=== PATIENT | male | born 1955 | race African-American/Black ===

== ENCOUNTER 2016-10-25 19:55 | Observation (INO) | payer BC ==
[~2016-10-25] VITALS: Ht 175.3 cm; Wt 76.7 kg
[2016-10-25 20:41] LABS: BASOPHILS % (AUTO) 0.9 % (0.0-2.0); EOSINOPHILS % (AUTO) 4.9 % (0.0-3.0); MEAN CORPUSCULAR HEMOGLOBIN 31.8 PG (27.0-31.0); MEAN CORPUSCULAR HGB CONC 30.7 G/DL (32.0-36.0); MEAN CORPUSCULAR VOLUME 104 FL (80-99); MEAN PLATELET VOLUME 7.3 FL (6.5-10.1); MONOCYTES % (AUTO) 7.8 % (1.0-10.0); NEUTROPHILS % (AUTO) 49.4 % (45.0-75.0); PLATELET COUNT 246 K/UL (150-450); RED BLOOD COUNT 3.38 M/UL (4.70-6.10); RED CELL DISTRIBUTION WIDTH 13.8 % (11.6-14.8); WHITE BLOOD COUNT 5.1 K/UL (4.8-10.8)
[2016-10-25 20:53] LABS: ALANINE AMINOTRANSFERASE 11 U/L (3-41); ALBUMIN/GLOBULIN RATIO 1.1 (1.0-2.7); ANION GAP 15 (5-15); ASPARTATE AMINO TRANSFERASE 12 U/L (5-40); CALCIUM 8.8 mg/dL (8.6-10.2); CARBON DIOXIDE 23 mEQ/L (20-30); CHLORIDE 102 mEQ/L (98-107); CREATININE 1.5 mg/dL (0.7-1.2); GLOMERULAR FILTRATION RATE 47.3 mL/min (>60); HEMOLYSIS 6; POTASSIUM 4.4 mEQ/L (3.4-4.9); SODIUM 140 mEQ/L (135-145); TOTAL PROTEIN 7.4 g/dL (6.6-8.7); TROPONIN I < 0.30 ng/mL (<=0.30)
[2016-10-25 21:01] VITALS: BP 179/83
[2016-10-25 21:04] LABS: CKMB 2.2 ng/mL (< 6.7)
--- NOTE | 2016-10-25 22:07 | Emergency Room Report ---
History of Present Illness General Chief Complaint: Chest Pain Source: Patient Present Illness HPI 61-year-old male presents to ED complaining of chest pain. Patient states he was walking all day today and after walking he started to develop chest pain. Left-sided, pressure-like, nonradiating. /10. Last for several minutes then subsided. Denies any chest pain at this time. Denies any shortness of breath. Does history of hypertension and has 2 stents. Denies smoke or drug use. No other aggravating relieving factors. Denies any other associated symptoms Allergies: Coded Allergies: ACETAMINOPHEN (Verified Allergy, Unknown, 10/25/16) CELECOXIB (Verified Allergy, Unknown, 10/25/16) CODEINE (Verified Allergy, Unknown, 10/25/16) HYDROCODONE (Verified Allergy, Unknown, 10/25/16) Patient History Past Medical History: DM, HTN, [place] Past Surgical History: none Pertinent Family History: none Social History: Denies: alcohol use, drug use, smoking Immunizations: UTD Reviewed Nursing Documentation: PMH: Agreed, PSxH: Agreed Nursing Documentation-PMH Past Medical History: No History, Except For Hx Cardiac Problems: Yes - stent x2 (2007) Hx Hypertension: Yes Hx Diabetes: Yes Review of Systems All Other Systems: negative except mentioned in HPI Physical Exam Vital Signs Date Time Temp Pulse Resp B/P Pulse Ox O2 Delivery O2 Flow Rate FiO2 10/25/16 20:04 98.1 75 16 178/86 100 Room Air Sp02 EP Interpretation: reviewed, normal General Appearance: no apparent distress, alert, GCS 15, non-toxic Head: normocephalic, atraumatic Eyes: bilateral eye PERRL, bilateral eye normal inspection ENT: hearing grossly normal, normal pharynx, no angioedema, normal voice Neck: full range of motion, supple/symm/no masses Respiratory: chest non-tender, lungs clear, normal breath sounds, speaking full sentences Cardiovascular #1: regular rate, rhythm, no edema Cardiovascular #2: 2+ carotid (R), 2+ carotid (L), 2+ radial (R), 2+ radial (L) , 2+ dorsalis pedis (R), 2+ dorsalis pedis (L) Gastrointestinal: normal bowel sounds, non tender, soft, non-distended, no guarding, no rebound Rectal: deferred Genitourinary: normal inspection, no CVA tenderness Musculoskeletal: back normal, gait/station normal, normal range of motion, non- tender Neurologic: alert, oriented x3, responsive, motor strength/tone normal, sensory intact, speech normal Psychiatric: judgement/insight normal, memory normal, mood/affect normal, no suicidal/homicidal ideation Reflexes: 3+ bicep (R), 3+ bicep (L), 3+ tricep (R), 3+ tricep (L), 3+ knee (R) , 3+ knee (L) Skin: normal color, no rash, warm/dry, well hydrated Lymphatic: no adenopathy Medical Decision Making Diagnostic Impression: Primary Impression: ACS (acute coronary syndrome) ER Course Hospital Course 61-year-old male presents ED complaining of left-sided chest pain Differential diagnoses include: WI/unstable angina, contusion, muscle strain, PTX, rib fracture Clinical course Patient placed on stretcher. on gambling monitor. After initial history and physical I ordered labs, EKG, chest x-ray, ASA labs reviewed- no leukocytosis, hb/hct stable, electrolytes ok, trop negative Chest x-ray- no acute process Case discussed with Dr. Dumont and he agreed to accept the patient to his service for further care and support I. I feel this is a highly complex case requiring extensive working including EKG/Rhythm strip, Xray/CT/US, Blood/urine lab work, repeat exams while in ED, and administration of strong opiates/narcotics for pain control, admission to hospital or close patient follow up. Diagnosis - ACS admitted to telemetry in serious condition Labs Test 10/25/16 20:17 White Blood Count 5.1 K/UL (4.8-10.8) Red Blood Count 3.38 M/UL (4.70-6.10) Hemoglobin 10.8 G/DL (14.2-18.0) Hematocrit 35.1 % (42.0-52.0) Mean Corpuscular Volume 104 FL (80-99) Mean Corpuscular Hemoglobin 31.8 PG (27.0-31.0) Mean Corpuscular Hemoglobin Concent 30.7 G/DL (32.0-36.0) Red Cell Distribution Width 13.8 % (11.6-14.8) Platelet Count 246 K/UL (150-450) Mean Platelet Volume 7.3 FL (6.5-10.1) Neutrophils (%) (Auto) 49.4 % (45.0-75.0) Lymphocytes (%) (Auto) 37.0 % (20.0-45.0) Monocytes (%) (Auto) 7.8 % (1.0-10.0) Eosinophils (%) (Auto) 4.9 % (0.0-3.0) Basophils (%) (Auto) 0.9 % (0.0-2.0) Sodium Level 140 mEQ/L (135-145) Potassium Level 4.4 mEQ/L (3.4-4.9) Chloride Level 102 mEQ/L (98-107) Carbon Dioxide Level 23 mEQ/L (20-30) Anion Gap 15 (5-15) Blood Urea Nitrogen 34 mg/dL (7-23) Creatinine 1.5 mg/dL (0.7-1.2) Estimat Glomerular Filtration Rate 47.3 mL/min (>60) Glucose Level 138 mg/dL (74-106) Calcium Level 8.8 mg/dL (8.6-10.2) Total Bilirubin < 0.2 mg/dL (0.0-1.2) Aspartate Amino Transf (AST/SGOT) 12 U/L (5-40) Alanine Aminotransferase (ALT/SGPT) 11 U/L (3-41) Alkaline Phosphatase 114 U/L (40-129) Total Creatine Kinase 80 U/L (38-174) Creatine Kinase MB 2.2 ng/mL (< 6.7) Creatine Kinase MB Relative Index 2.7 Troponin I < 0.30 ng/mL (<=0.30) Pro-B-Type Natriuretic Peptide 29 pg/mL (0-125) Total Protein 7.4 g/dL (6.6-8.7) Albumin 4.0 g/dL (3.5-5.2) Globulin 3.4 g/dL Albumin/Globulin Ratio 1.1 (1.0-2.7) EKG Diagnostic Results Rate: normal Rhythm: NSR ST Segments: no acute changes ASA given to the pt in ED: Yes Rhythm Strip Diag. Results EP Interpretation: yes Rhythm: NSR, no PVC's, no ectopy Chest X-Ray Diagnostic Results EP Interpretation: Yes Findings: no consolidation, no effusion, no pneumothorax, no acute cardiopulmonary disease Number of Views: 1 Last Vital Signs Date Time Temp Pulse Resp B/P Pulse Ox O2 Delivery O2 Flow Rate FiO2 10/25/16 21:20 79 179/83 10/25/16 21:01 98.1 16 100 Room Air Status: improved Disposition: ADMITTED INPATIENT Condition: Serious Referrals: NON PHYSICIAN (PCP) GARRISON CROCKER M.D. Oct 25, 2016 22:07
[2016-10-25] MEDS ORDERED: FUROSEMIDE20 M1 ORAL (22:40)
[2016-10-25] MEDS ORDERED: PYRIDOSTIGMINE60 MG ORAL (22:40)
[2016-10-25] MEDS ORDERED: AMARYL4 MG ORAL (22:40)
[2016-10-25] MEDS ORDERED: KEPPRA1000 MG ORAL (22:40)
[2016-10-25] MEDS ORDERED: ALLOPURINOL300 M1 ORAL (22:40)
[2016-10-25] MEDS ORDERED: NORVASC10 MG ORAL (22:40)
[2016-10-25] MEDS ORDERED: CARVEDILOL6.25 MG ORAL (22:40)
[2016-10-25] MEDS ORDERED: VITAMIN D34000 UNIT PO (22:40)
[2016-10-25] MEDS ORDERED: TELMISARTAN80 MG PO (22:40)
[2016-10-25 22:43] VITALS: BP 165/81
[2016-10-26] VITALS: BP 177/94
[2016-10-26] MEDS ORDERED: Milk of Magnesia 30ml Ud ORAL PRN
[2016-10-26] MEDS ORDERED: Zolpidem 5mg tab ORAL PRN
[2016-10-26 04:00] VITALS: BP_SYST 113; BP_SYST 160; BP_DIAS 76; BP_DIAS 89
[2016-10-26] MEDS ORDERED: Nitroglycerin 2% oint pkt TOPIC SCH (06:00)
[2016-10-26 08:00] VITALS: BP 140/84
[2016-10-26 08:52] LABS: TROPONIN I < 0.30 ng/mL (<=0.30)
[2016-10-26] MEDS ORDERED: Atenolol 25mg tab ORAL SCH (09:00)
[2016-10-26] MEDS ORDERED: Heparin 5000 units/ml inj SUBQ SCH (09:00)
[2016-10-26] MEDS ORDERED: Aspirin Baby 81mg ORAL SCH (09:00)
--- NOTE | 2016-10-26 09:21 | Diagnostic Imaging Report ---
Indication: Chest pain Technique: XRAY CHEST 1 V Comparison: None Findings: The cardiomediastinal silhouette is within normal limits. There is no focal consolidation, pneumothorax or pleural effusion. Cervical hardware is partially visualized. Degenerative changes of the spine are noted. Impression: No acute cardiopulmonary disease.
[2016-10-26 09:22] LABS: CHOLESTEROL/HDL RATIO 4.3 (3.3-4.4)
[2016-10-26] MEDS: NovoLOG Insulin Flexpen SUBQ SCH ×2 (11:30→16:00)
[2016-10-26 12:00] VITALS: BP_SYST 140; BP_SYST 148; BP_DIAS 80
[2016-10-26 12:31] LABS: TROPONIN I < 0.30 ng/mL (<=0.30)
[2016-10-26] MEDS ORDERED: Nitroglycerin Subl 0.4mg tab (Bottle Of 25) SL PRN (13:15)
--- NOTE | 2016-10-26 15:59 | Wound Care Consultation ---
Wound Assessment Wound Assessment : Wound Present on Admission: Yes New Wound: No Status Change of Wound: No Wound Location Body Site Modif: left Wound Location Body Site: heel Wound Type: other - old scar with skin graft Roseanne Test: Does not Roseanne Wound Thickness: Full Thickness Wound Drainage Amount: None Wound Drainage Odor: None/Absent Tissue Surrounding Wound: Intact Wound General Appearance: Asymptomatic Wound Comment #1 Left heel old scar with skin graft Recommendation -Offload both heels -Heel protector on both heels -Optimize nutrition -Assess and f/u accordingly for any changes JOSIE DOUGHERTY RN Oct 26, 2016 15:59
[2016-10-26 16:00] VITALS: BP 119/63
[2016-10-26] MEDS ORDERED: Carvedilol 6.25mg Tab ORAL SCH (21:00)
--- NOTE | 2016-10-27 04:07 | Consultation ---
DATE OF CONSULTATION: 10/26/2016 REQUESTING PHYSICIAN: Juventino Dumont M.D. REASON FOR CONSULTATION: Chest pain in the setting of coronary artery disease. HISTORY OF PRESENT ILLNESS: This is a 61-year-old male visiting from [place], [place]. He has a known history of coronary artery disease and is status post coronary stent. He had a myocardial infarction prior to that event. He has been well since with no exertional chest pain. 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 He had walked almost pushed by family members and developed chest pain for the end of the day. He describes it as pressure like and lasting several minutes. He improved upon rest and arrival to the emergency room. Since admission, he has had several negative troponin levels and his electrocardiogram reveals sinus rhythm with no acute abnormalities. PAST MEDICAL HISTORY: 1. Hypertension. 2. Coronary artery disease as described above with prior myocardial infarction. 3. Type 2 diabetes mellitus. 4. Hyperlipidemia. 5. Orthostatic hypotension. ALLERGIES: Acetaminophen, celecoxib, hydrocodone, and codeine. FAMILY HISTORY: Noncontributory. SOCIAL HISTORY: Negative for smoking or alcohol use. MEDICATIONS: Reviewed and reconciled. REVIEW OF SYSTEMS: No fevers. No cough. No melena or bright red blood per rectum. No history of seizure or stroke. No history of prostate cancer or elevated PSA. No history of asthma or blood clots in the legs. No history of thyroid disorder. His diabetes is managed with oral therapy. PHYSICAL EXAMINATION: GENERAL: Afebrile. Blood pressure now 160/80, pulse 70, and respiratory rate 16. NECK: Supple. LUNGS: Clear. Carotid upstrokes without delay. CARDIAC: Regular rhythm and rate. Normal S1 and S2 with a fourth heart sound. ABDOMEN: Soft. EXTREMITIES: Without edema. IMPRESSION: 1. Acute coronary syndrome. 2. Hypertensive heart disease. The patient notes blood pressure range is not elevated and he should have it checked standing only history of orthostasis. 3. Type 2 diabetes mellitus, on oral therapy. PLAN: Cardiac monitoring. Titrate antihypertensives based on standing blood pressure readings. Continue anti-platelet therapy, statin drug and consider discharge as the patient wishes to return home to [place] to peruse myocardial perfusion scan after consulting with is primary cardiology. He will be given sublingual nitroglycerin upon discharge and advised to limit physical activity. Roney Harvey M.D. DR: JAMIE JOB#: [id number] CC:
--- NOTE | 2016-10-27 05:07 | History and Physical Report ---
DATE OF ADMISSION: 10/25/2016 REASON FOR ADMISSION: Chest pain. HISTORY OF PRESENT ILLNESS: The patient is a 61-year-old male, who presented with chest pain to the emergency room. The patient noted pain with walking, left-sided, nonradiating, described as 7/10. The patient noted the pain that lasted for several minutes. No shortness of breath. No chest tightness. No trauma. Cardiac risk factor is hypertension. The patient does have history of CAD with two stents. Currently, the patient is chest pain-free. The patient is also diabetic. PAST MEDICAL HISTORY: Diabetes, hypertension, and [place]. PAST SURGICAL HISTORY: Previous stents x2 back in 2007. MEDICATIONS: Reviewed. ALLERGIES: Reviewed. SOCIAL HISTORY: Noted and reviewed. Currently, nonsmoker and nondrinker. Independent. REVIEW OF SYSTEMS: The patient review of systems is otherwise negative. PHYSICAL EXAMINATION: GENERAL: A well-developed male, comfortable. VITAL SIGNS: Currently stable. Blood pressure 140/84, pulse 67, respirations 25, and oxygen saturation 96%. LUNGS: Clear. CARDIAC: S1 and S2. Regular rate and rhythm. No clear murmurs, rubs, or gallops. ABDOMEN: Soft and nontender. EXTREMITIES: No edema. NEUROLOGICAL: Grossly nonfocal. LABORATORY DATA: Lab data reviewed. Notable for low hemoglobin of 10.8. Creatinine 1.5. Cholesterol noted IMPRESSION: 1. Chest pain, possible acute coronary syndrome. 2. History of coronary artery disease. 3. Chronic renal insufficiency with possibly history of chronic anemia. RECOMMENDATIONS: Aspirin, beta blockers, and diabetic management. Resume home medications, nitrates, and Lovenox. Follow up clinically as recommended. Obtain Cardiology evaluation, likely proceed with stress test to further evaluate and transfer for further intervention if needed. Juventino Dumont M.D. DR: RENATO JOB#: [id number] CC: SARAH
[2016-10-27] MEDS ORDERED: Glimepiride 4mg tab ORAL SCH (06:30)
--- NOTE | 2016-10-27 09:29 | Discharge Summary ---
Discharge Summary Hospital Course Date of Admission Oct 25, 2016 at 22:25 Date of Discharge Oct 26, 2016 at 17:00 Admitting Diagnosis ACS HPI Stephan Maya is a 61 year old male who was admitted on Oct 25, 2016 at 22:25 for Acute Coronary Syndrome Hospital Course dc summary dictated #[id number] ( signed AMA) Discharge Discharge Disposition Patient signed AMA Discharge Diagnoses: Michael (Giorgikristen),Amanda POTTER Oct 27, 2016 09:28
--- NOTE | 2016-10-27 18:59 | Cardiology Report ---
APPROVED REPORT EKG Measurement Heart [id number] Normal sinus rhythm Nonspecific T wave abnormality Abnormal ECG
--- NOTE | 2016-10-27 19:04 | Cardiology Report ---
APPROVED REPORT EKG Measurement Heart [id number] Normal sinus rhythm Nonspecific T wave abnormality Abnormal ECG
--- NOTE | 2016-10-27 23:57 | Progress Note ---
DATE: 10/27/2016 CARDIOLOGY PROGRESS NOTE SUBJECTIVE: The patient denies chest pain. No shortness of breath. No dizziness. OBJECTIVE: VITAL SIGNS: Blood pressure 148/80, heart rate 73, and respiratory rate 20. NECK: Supple. LUNGS: Clear. Jugular venous pressure normal. CARDIAC: Regular. Normal S1 and S2. No murmur. ABDOMEN: Soft. EXTREMITIES: Without edema. Troponin negative. LDL is 119. IMPRESSION: 1. Anginal episode precipitated by increased physical activity. 2. Coronary artery disease with history of coronary stent. 3. History of myocardial infarction. 4. Dyslipidemia. 5. Hypertensive heart disease with suboptimal blood pressure control. 6. History of orthostatic hypotension. 7. Chronic kidney disease. PLAN: 1. Monitor orthostatics. We will consider tighter blood pressure control as an outpatient upon consulting with his primary physician. 2. Continue anti-platelet therapy. 3. Nitroglycerin sublingual p.r.n. chest pain. 4. Statin dose to be adjusted to achieve LDL goal less than 100. 5. The patient wishes to pursue myocardial perfusion scan as an outpatient with his primary care physician and his condition is stable at this time to permit this request. Roney Harvye M.D. DR: JESSIKA JOB#: [id number] CC:
--- NOTE | 2016-10-28 04:17 | Discharge Summary 2 SIG ---
DATE OF ADMISSION: 10/25/2016 DATE OF SIGNING AGAINST MEDICAL ADVICE: 10/26/2016 ADMITTING DOCTOR: dr Dumont REASON FOR ADMISSION: A 61-year-old male presented to the emergency room complaining of chest pain. The patient stated that after walking the whole day (the day prior to presentation), he developed chest pain described as a left-sided ,pressure like, nonradiating , 7/10 on a scale 1 to 10. Pain lasted for several minutes and then subsided. At the time of presentation, he denied chest pain. He denied associated shortness of breath. The patient does has underlying cardiac history of hypertension, coronary artery disease with a history of myocardial infarction, and two stent placements. He was admitted with chest pain and possible acute coronary syndrome. ADMITTING DIAGNOSIS: chest pain r/o ACS History of [place] with 2 stent placement history of HTN History of DM HOSPITAL STAY: The patient admitted to telemetry floor. Serial troponin x3 were negative. Cardiac consult was requested. The patient started on antiplatelet therapy and beta jacqueline. Home medications resumed. Chest x-ray revealed no acute cardiopulmonary disease. EKG showed normal sinus rhythm, no ST changes. No ectopy. Lipid panel revealed mild elevation in LDL. The patient was counseled on cardiac diet and need to start statin. The patient also presented with evidence of likely chronic renal insufficiency with creatinine 1.5 and BUN of 34, and mild anemia with hemoglobin of 10.8 and hematocrit of 35.1. The patient was scheduled for stress test. Courtroom Deputy Or Calendar Clerk followed the patient. Blood sugar was stable and was managed with oral antiglycemic. DVT and GI prophylaxis provided. The patient refused stress test stating that he wants to do it at [place], where he is originally from , with his primary swatch paster. Due to the high risk of possible acute coronary syndrome, in lieu of coronary artery disease with a history of myocardial infarction and stent placement and hypertensive heart disease as well as the diabetes primary medical doctor did not want to discharge patient and wanted him to have a stress test at this facility. The patient was explained risks and consequences of signing against medical advice.The patient declined further stay and signed against medical advice. FINAL DIAGNOSES: 1. Acute chest pain, possible acute coronary syndrome. 2. Coronary artery disease with history of myocardial infarction. 3. Hypertensive heart disease. 4. Diabetes mellitus type 2. 5. Mild hypercholesteremia. 6. Chronic renal insufficiency. 7. Possible chronic anemia. Of note, Juventino Dumont M.D. I have been assigned to dictate discharge summary on this account and I was not involved in the patient's management. Amanda Steelcolumba N.PAlfredo DR: HASMUKH JOB#: [id number] CC: SARAH
== END 2016-10-26 17:00 | disposition left against medical advice (07) ==
LOC: EMR 20:21 → EDBEDREQ 21:56 → INTOOBSV 22:25 → 2E 22:25
DX: R07.9 Chest pain, unspecified (principal); I25.10 Atherosclerotic heart disease of native coronary artery without angina pectoris; I13.10 Hypertensive heart and chronic kidney disease without heart failure, with stage 1 through stage 4 chronic kidney disease, or unspecified chronic kidney disease; N18.9 Chronic kidney disease, unspecified; Z95.5 Presence of coronary angioplasty implant and graft; I25.2 Old myocardial infarction; E11.9 Type 2 diabetes mellitus without complications; E78.00 Pure hypercholesterolemia, unspecified; Z79.82 Long term (current) use of aspirin; Z79.899 Other long term (current) drug therapy; Z88.6 Allergy status to analgesic agent; Z88.5 Allergy status to narcotic agent; Z88.8 Allergy status to other drugs, medicaments and biological substances
CPT/HCPCS: 36415; 71010; 80053; 80061; 82550; 82553; 82962; 83880; 84484; 85025; 93005; 99285; G0378; J1815; J7040